=== PATIENT | female | born 1950 | race Caucasian/White ===

== ENCOUNTER 2017-09-03 11:54 | Emergency (ER) | payer MEDICARE ==
--- NOTE | 2017-09-03 14:57 | UC ---
Respiratory Complaint HPI - HPI Summary HPI Summary: c/o of clear nasal discharge, cough with scant clear sputum, (was yellow 2 days ago but it cleared) and sinus congestion for the past 7 days. Denies chills, fever. States she feels fatigue but easily coughs out phlegm, she is not coughing at night anymore. Denies asthma, smoking or DM - History of Current Complaint Chief Complaint: UCGeneralIllness Stated Complaint: SINUS CONGESTION Time Seen by Provider: 09/03/17 14:38 Hx Obtained From: Patient ?: Yes Onset/Duration: Gradual Onset, Lasting Days Timing: Intermittent Episodes Severity Initially: Mild Severity Currently: Moderate Pain Intensity: 6 Character: Cough: Productive Aggravating Factors: Nothing Associated Signs And Symptoms: Positive: Negative - Risk Factors Pulmonary Embolism Risk Factors: Negative Cardiac Risk Factors: Negative Pseudomonas Risk Factors: Negative Tuberculosis Risk Factors: Negative - Allergies/Home Medications Allergies/Adverse Reactions: Allergies Allergy/AdvReac Type Severity Reaction Status Date / Time No Known Allergies Allergy Verified 09/03/17 13:47 Home Medications: Home Medications Aspirin EC TAB* [Ecotrin EC Low Dose 81 MG*] 81 mg PO DAILY 09/03/17 [History Confirmed 09/03/17] Atorvastatin* [Lipitor*] 20 mg PO DAILY 09/03/17 [History Confirmed 09/03/17] Iron 65 mg PO DAILY 09/03/17 [History Confirmed 09/03/17] Meloxicam [Mobic] 15 mg PO DAILY 09/03/17 [History Confirmed 09/03/17] Metoprolol Tartrate TAB* [Lopressor TAB*] 100 mg PO BID 09/03/17 [History Confirmed 09/03/17] Mirabegron (NF) [Myrbetriq (NF)] 50 mg PO DAILY 09/03/17 [History Confirmed 01/11] Multivitamins/Minerals TAB* [Theragran/minerals TAB*] 1 tab PO DAILY 09/03/17 [ History Confirmed 09/03/17] Pantoprazole Sodium 20 mg PO DAILY 09/03/17 [History Confirmed 09/03/17] Tolterodine Tartrate 2 mg PO DAILY 09/03/17 [History Confirmed 09/03/17] Valsartan TAB* [Diovan TAB*] 320 mg PO DAILY 09/03/17 [History Confirmed ] Venlafaxine EXT RELEASE CAP* [Effexor Xr CAP*] 75 mg PO DAILY 09/03/17 [History Confirmed 09/03/17] PMH/Surg Hx/FS Hx/Imm Hx Previously Healthy: Yes Endocrine History: Dyslipidemia Cardiovascular History: Hypertension - Surgical History Surgical History: Yes Surgery Procedure, Year, and Place: vericose veins. hysterectomy. carpal tunnel bilateral hands - Social History Alcohol Use: None Substance Use Type: None Smoking Status (MU): Never Smoked Tobacco Review of Systems Constitutional: Negative ENT: Nasal Discharge Respiratory: Cough All Other Systems Reviewed And Are Negative: Yes Physical Exam Triage Information Reviewed: Yes Appearance: Well-Appearing, No Pain Distress, Obese Vital Signs: Initial Vital Signs Temp 99.2 F 09/03/17 12:43 Pulse 76 09/03/17 12:43 Resp 15 09/03/17 12:43 BP 151/74 09/03/17 12:43 Pulse Ox 98 09/03/17 12:43 Vital Signs Reviewed: Yes Eyes: Positive: Conjunctiva Clear ENT: Positive: Normal ENT inspection, Hearing grossly normal, Pharynx normal, TMs normal, Uvula midline Neck: Positive: Supple, Nontender, No Lymphadenopathy Respiratory: Positive: Chest non-tender, Lungs clear, Normal breath sounds, No respiratory distress Cardiovascular: Positive: RRR, No Murmur, Pulses Normal, Brisk Capillary Refill Abdomen Description: Positive: Nontender UC Diagnostic Evaluation - Laboratory O2 Sat by Pulse Oximetry: 98 Respiratory Course/Dx - Course Course Of Treatment: viral URI, continue rest, po fluids and tylenol as needed. f/u with PCP - Differential Dx/Diagnosis Provider Diagnoses: URI viral Discharge - Sign-Out/Discharge Documenting (check all that apply): Discharge/Admit/Transfer - Discharge Plan Condition: Stable Disposition: HOME Patient Education Materials: Viral Syndrome (ED), Electrolyte Supplement (By mouth) Referrals: Silva Quispe MD [Primary Care Provider] - - Billing Disposition and Condition Condition: STABLE Disposition: Home
[2017-09-03 15:01] VITALS: BP 142/85
== END 2017-09-03 15:02 | disposition home or self-care (01) ==
LOC: UCCORT 11:54
DX: J06.9 Acute upper respiratory infection, unspecified (principal); I10 Essential (primary) hypertension; E78.5 Hyperlipidemia, unspecified; Z79.899 Other long term (current) drug therapy
CPT/HCPCS: 99202; G0463

== ENCOUNTER 2018-11-26 10:19 | Emergency (ER) | payer MEDICARE ==
[2018-11-26 11:16] VITALS: BP 161/89
--- NOTE | 2018-11-26 12:06 | UC ---
Cardiac HPI - HPI Summary HPI Summary: 67yo female c/o left lateral chest pain after trip and fall yesterday. Positive splinting pain. No SOB. No abd pain. Tylenol helps some with the painPatient has spinal stenosis and chronic problems with balance. Denies any other injury. - History of Current Complaint Chief Complaint: UCChestPain Stated Complaint: S/P FALL LEFT RIBS Time Seen by Provider: 11/26/18 10:58 Pain Intensity: 9 - Allergy/Home Medications Allergies/Adverse Reactions: Allergies Allergy/AdvReac Type Severity Reaction Status Date / Time No Known Allergies Allergy Verified 11/26/18 10:44 Home Medications: Home Medications Cholecalciferol TAB* [Vitamin D TAB*] 400 unit PO DAILY 11/26/18 [History Confirmed 11/26/18] Irbesartan 150 mg PO QPM 11/26/18 [History Confirmed 11/26/18] Vitamin C 180 Mg 1 tab PO QAM 11/26/18 [History Confirmed 11/26/18] Zinc 50 mg PO QPM 11/26/18 [History Confirmed 11/26/18] PMH/Surg Hx/FS Hx/Imm Hx Previously Healthy: Yes - SPINAL STENOSIS AND CHRONIC BALANCE PROBLEMS Endocrine History: Dyslipidemia Cardiovascular History: Hypertension GI/ History: Gastroesophageal Reflux - Surgical History Surgical History: Yes Surgery Procedure, Year, and Place: varicose veins; b/l cataracts 08/2018 Dr. Friedman. hysterectomy. carpal tunnel bilateral hands - Social History Alcohol Use: None Substance Use Type: None Smoking Status (MU): Never Smoked Tobacco Review of Systems All Other Systems Reviewed And Are Negative: Yes Constitutional: Positive: Negative Skin: Positive: Negative Eyes: Positive: Negative ENT: Positive: Negative Respiratory: Positive: Negative Cardiovascular: Positive: Chest Pain Gastrointestinal: Positive: Negative Genitourinary: Positive: Negative Motor: Positive: Negative Neurovascular: Positive: Negative Musculoskeletal: Positive: Other: - SEE HPI Neurological: Positive: Other - SEE HPI Psychological: Positive: Negative Is Patient Immunocompromised?: No Physical Exam Triage Information Reviewed: Yes Appearance: Well-Appearing, No Pain Distress, Well-Nourished Vital Signs: Initial Vital Signs Temp 99 F 11/26/18 11:10 Pulse 72 11/26/18 11:10 Resp 24 11/26/18 11:10 BP 161/89 11/26/18 11:10 Pulse Ox 97 11/26/18 11:10 Vital Signs Reviewed: Yes Eye Exam: Normal Eyes: Positive: Conjunctiva Clear Neck: Positive: Supple Respiratory: Positive: Lungs clear, Normal breath sounds, No respiratory distress, Other: - Tender to palpation left lower lateral ribs. Cardiovascular: Positive: RRR Abdomen Description: Positive: Nontender, Soft Musculoskeletal: Positive: Strength Intact, ROM Intact Neurological: Positive: Alert, Muscle Tone Normal Psychological: Positive: Age Appropriate Behavior Skin Exam: Normal - No eccymosis - Assessment/Plan Course Of Treatment: Produce Buyer: Farzana Maria S ([id number]) Store Lead: TIFFANIE (NUANCE) Report Date: 11/26/2018 11:18:00 Report Status: Final Start of Report Content Patient Name: WHIT ROYAL Medical Record#: [id number] Ordering Physician: Chan Xavier MD Acct.#: [id number] : Age: 67 Sex: F Location: [facility] Exam Date: 11/26/18 1118 ADM Status: REG ER Order Information: RIBS LT UNI W/PA CH MIN 3 VWS Accession Number: [id number] CPT: 81907 Indication: Left rib injury. 4 views of left RIBS including dual energy PA views demonstrates question of a fracture of the left sixth rib anterolaterally. Slight deformity is noted. Body habitus and osteopenia makes evaluation difficult. Left pleural effusion is noted. Dual energy PA views of the chest demonstrates no pneumothorax. IMPRESSION: Questionable fracture of the left sixth rib anterolaterally with left pleural effusion. Hilar hernia is noted. No pneumothorax is noted. <Electronically signed by Farzana Maria MD in OV> 11/26/18 1209 Dictated By: Farzana Maria MD Dictated Date/Time: 115 Transcribed Date/Time: 11/26/181156 Copy to: CC:Silva Quispe MD; Chan Xavier MD Imaging - [facility] Imaging - [facility] Imaging - [facility] [address] [facility] [address] [place], [place] [id number] [place] [id number] [place] [id number] ph [phone] ph ) ph ([phone]) End of Report Content Discussed x-ray results with the patient. F/U PMD. Go to Emergency Department if worse. - Clinical Impression Provider Diagnosis: Left rib fracture, Pleural effusion, left Discharge ED - Sign-Out/Discharge Documenting (check all that apply): Patient Departure All imaging exams completed and their final reports reviewed: Yes - Discharge Plan Condition: Stable Disposition: HOME Patient Education Materials: Rib Fracture (ED), Pleural Effusion (ED) Referrals: Silva Quispe MD [Primary Care Provider] - Additional Instructions: FOLLOW UP WITH YOUR DOCTOR. GO TO THE EMERGENCY DEPARTMENT IF YOUR CONDITION WORSENS; SHORTNESS OF BREATH, FEVER, YOU FEEL ILL OR ANY QUESTIONS OR CONCERNS. - Billing Disposition and Condition Condition: STABLE Disposition: Home
== END 2018-11-26 12:38 | disposition home or self-care (01) ==
LOC: UCCORT 10:19
DX: S22.32XA Fracture of one rib, left side, initial encounter for closed fracture (principal); W01.0XXA Fall on same level from slipping, tripping and stumbling without subsequent striking against object, initial encounter; Y92.9 Unspecified place or not applicable; J90 Pleural effusion, not elsewhere classified; I10 Essential (primary) hypertension; M48.00 Spinal stenosis, site unspecified
CPT/HCPCS: 99212; G0463